=== PATIENT | male | born 1975 | race Caucasian/White ===

== ENCOUNTER 2025-02-25 14:44 | Emergency (ER) | payer BC, SELFPAY ==
[2025-02-25 14:51] VITALS: BP 154/84; PULSE 106; RESP 17; TEMP 36.5; O2SAT 95; BMI 24.4
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
[2025-02-25 15:38] VITALS: BP 149/86; PULSE 94; O2SAT 94
[2025-02-25 15:40] VITALS: BP 149/86; PULSE 94; O2SAT 94
== END 2025-02-25 15:40 | disposition home or self-care (01) ==
PROVIDERS: Emergency Provider Physician Assistant
DX: S47.1XXA Crushing injury of right shoulder and upper arm, initial encounter (principal); W23.0XXA Caught, crushed, jammed, or pinched between moving objects, initial encounter
CPT/HCPCS: 99283